=== PATIENT | female | born 1985 | race Caucasian/White ===

== ENCOUNTER → 2017-02-03 | Outpatient (CLI) | payer OTHER ==
[2017-02-03 11:06] LABS: BASO % 0.4 % (0.0-1.0); EOS # 0.1 K/mm3 (0.0-0.50); EOS % 0.9 % (0.0-3.0); LARGE UNSTAINED CELL # 0.1 K/mm3 (0.0-0.4); LARGE UNSTAINED CELL % 1.1 % (0.0-4.0); LYMPH # 2.1 K/mm3 (1.5-4.5); LYMPH % 22.6 % (24.0-44.0); MEAN CORPUSCULAR HEMOGLOBIN 29.9 pg (27.0-33.0); MEAN CORPUSCULAR HGB CONC 34.2 g/dl (32.0-36.5); MEAN CORPUSCULAR VOLUME 87.4 fl (80.0-96.0); MONO # 0.3 K/mm3 (0.0-0.8); MONO % 3.1 % (0.0-5.0); NEUTROPHILS # 6.4 K/mm3 (1.8-7.7); NEUTROPHILS % 71.9 % (36.0-66.0); PLATELET COUNT, AUTOMATED 311 k/mm3 (150-450); WHITE BLOOD COUNT 8.9 K/mm3 (4.0-10.0)
[2017-02-03 11:29] LABS: THYROID PEROXIDASE ANTIBODY < 28.0 U/ML (<60.0)
[2017-02-03 11:33] LABS: ALBUMIN 3.5 GM/DL (3.2-5.2); ALBUMIN/GLOBULIN RATIO 0.97 (1.00-1.93); ALKALINE PHOSPHATASE 53 U/L (45-117); ALT/SGPT 20 U/L (12-78); ANION GAP 8 MEQ/L (8-16); AST/SGOT 14 U/L (15-37); BILIRUBIN,TOTAL 0.4 MG/DL (0.2-1.0); BLOOD UREA NITROGEN 9 MG/DL (7-18); CALCIUM LEVEL 8.7 MG/DL (8.5-10.1); CARBON DIOXIDE LEVEL 27 MEQ/L (21-32); CHLORIDE LEVEL 105 MEQ/L (98-107); CREATININE FOR GFR 0.59 MG/DL (0.55-1.02); GLOMERULAR FILTRATION RATE > 60.0 (>60); GLUCOSE, FASTING 92 MG/DL (70-105); POTASSIUM SERUM 4.3 MEQ/L (3.5-5.1); SODIUM LEVEL 140 MEQ/L (136-145); TOTAL PROTEIN 7.1 GM/DL (6.4-8.2)
== END ==
LOC: M LAB 10:25
PROVIDERS: ATTEND Allergy & Immunology
DX: R53.81 Other malaise (principal); R63.5 Abnormal weight gain

== ENCOUNTER → 2017-04-20 | Outpatient (REF) | payer OTHER | LOC: M LAB REF 09:36 | PROVIDERS: ATTEND Physician Assistant | DX: J20.9 Acute bronchitis, unspecified (principal); J02.9 Acute pharyngitis, unspecified ==

== ENCOUNTER → 2017-06-28 | Outpatient (REF) | payer OTHER | LOC: M LAB REF 10:16 | PROVIDERS: ATTEND Nurse Practitioner Family | DX: E66.01 Morbid (severe) obesity due to excess calories (principal) ==

== ENCOUNTER → 2017-12-24 | Outpatient (CLI) | payer OTHER | LOC: M RAD 09:49 | DX: M54.2 Cervicalgia (principal) ==

== ENCOUNTER → 2017-12-31 | Outpatient (CLI) | payer OTHER | LOC: M RAD 16:15 | DX: M47.812 Spondylosis without myelopathy or radiculopathy, cervical region (principal) | CPT/HCPCS: 72141 ==

== ENCOUNTER → 2020-09-16 | Outpatient (CLI) | payer SELFPAY | LOC: M LABSMTC 12:36 | PROVIDERS: ATTEND Pediatrics | DX: Z20.828 Contact with and (suspected) exposure to other viral communicable diseases (principal) ==

== ENCOUNTER → 2022-03-06 | Outpatient (REF) | payer OTHER ==
[2022-03-07 12:11] LABS: HCG, SERUM QUANTITATIVE < 1.0 MIU/ML; THYROID STIMULATING HORMONE 0.546 uIU/ML (0.358-3.740)
[2022-03-07 12:16] LABS: FOLLICLE STIMULATING HORMONE 5.7 mIU/mL; LUTEINIZING HORMONE 9.6 mIU/mL
[2022-03-08 18:07] LABS: TESTOSTERONE FREE (DIRECT) 0.8 pg/mL (0.0-4.2); TESTOSTERONE TOTAL FOR T&D < 3.0 ng/dL (8-60)
== END ==
LOC: M LABDRAWC 10:59
DX: N94.6 Dysmenorrhea, unspecified (principal)

== ENCOUNTER → 2022-09-24 | Outpatient (CLI) | payer OTHER ==
[2022-09-24 19:04] LABS: BASO % 0.5 % (0.0-1.0); EOS # 0.1 10^3/uL (0.0-0.5); EOS % 1.5 % (0.0-3.0); HEMATOCRIT 43.4 % (36.0-47.0); HEMOGLOBIN 14.3 g/dl (12.0-15.5); LYMPH # 2.2 10^3/uL (1.5-5.0); LYMPH % 27.8 % (24.0-44.0); MEAN CORPUSCULAR HEMOGLOBIN 29.1 pg (27.0-33.0); MEAN CORPUSCULAR HGB CONC 32.9 g/dl (32.0-36.5); MEAN CORPUSCULAR VOLUME 88.4 fl (80.0-96.0); MONO # 0.4 10^3/uL (0.0-0.8); MONO % 5.2 % (2.0-8.0); NEUTROPHILS # 5.2 10^3/uL (1.5-8.5); NEUTROPHILS % 64.8 % (36.0-66.0); PLATELET COUNT, AUTOMATED 280 10^3/uL (150-450); RED BLOOD COUNT 4.91 10^6/uL (4.00-5.40)
[2022-09-24 19:23] LABS: ALBUMIN 3.7 G/DL (3.2-5.2); ALKALINE PHOSPHATASE 39 U/L (46-116); ALT/SGPT 10 U/L (7.0-40); AST/SGOT 10 U/L (<34); BILIRUBIN,TOTAL 0.4 MG/DL (0.3-1.2); BLOOD UREA NITROGEN 15 MG/DL (9-23); CALCIUM LEVEL 8.8 MG/DL (8.5-10.1); CARBON DIOXIDE LEVEL 23 MMOL/L (20-31); CHLORIDE LEVEL 110 MMOL/L (98-107); CREATININE FOR GFR 0.84 MG/DL (0.55-1.30); GLOMERULAR FILTRATION RATE > 60.0 (>60); GLUCOSE, FASTING 84 MG/DL (60-100); POTASSIUM SERUM 4.3 MMOL/L (3.5-5.1); SODIUM LEVEL 140 MMOL/L (136-145); TOTAL PROTEIN 7.3 G/DL (5.7-8.2)
[2022-09-24 19:25] LABS: FOLATE 11.2 NG/ML (>5.4); TOTAL 25(OH) VITAMIN D 29.5 NG/ML (20.0-100.0)
[2022-09-24 19:27] LABS: VITAMIN B12 LEVEL 237 PG/ML (211-911)
== END ==
LOC: M LAB 17:50
PROVIDERS: ATTEND Psychiatry & Neurology Neurology
DX: R51.9 Headache, unspecified (principal)

== ENCOUNTER → 2023-06-04 | Outpatient (REF) | payer OTHER | LOC: M SFHCWAGY 17:01 | PROVIDERS: ATTEND Nurse Practitioner Family | DX: N93.9 Abnormal uterine and vaginal bleeding, unspecified (principal) ==

== ENCOUNTER → 2023-06-11 | Outpatient (CLI) | payer OTHER | LOC: M WHC 13:15 | PROVIDERS: ATTEND Nurse Practitioner Family | DX: T83.32XA Displacement of intrauterine contraceptive device, initial encounter (principal) ==

== ENCOUNTER → 2023-06-27 | Outpatient (CLI) | payer OTHER | LOC: M PLAIMG 10:36 | PROVIDERS: ATTEND Physician Assistant | DX: R10.12 Left upper quadrant pain (principal) ==

== ENCOUNTER → 2023-08-27 | Outpatient (CLI) | payer OTHER | LOC: M WHC 11:36 | PROVIDERS: ATTEND Nurse Practitioner Family | DX: Z12.31 Encounter for screening mammogram for malignant neoplasm of breast (principal); Z80.3 Family history of malignant neoplasm of breast ==

== ENCOUNTER → 2023-08-27 | Outpatient (REF) | payer OTHER | LOC: M SFHCWAGY 17:33 | PROVIDERS: ATTEND Nurse Practitioner Family | DX: Z12.4 Encounter for screening for malignant neoplasm of cervix (principal) | CPT/HCPCS: 87624; G0123 ==

== ENCOUNTER 2024-01-01 10:44 | Day surgery (SDC) | payer OTHER ==
[~2024-01-01] VITALS: Ht 157.5 cm; Wt 83.5 kg
[~2024-01-01 10:44] MED LIST: ASPI81TA26 PO; CYCL-707 PO; LEXA1TAB2 PO; PROZ40CA PO; SENN8.6T58 PO; SUMA100T2 PO; TOPA100T12 PO; VITA100018 PO; VITA100093 PO; WELLTAB40 PO
[2024-01-01] MEDS ORDERED: propofoL 200 MG/20 ML VIAL As Ordered ONE (11:33)
[2024-01-01] MEDS ORDERED: GLYCOPYRROLATE INJ 0.2 MG/ML 2 ML VIAL As Ordered ONE (11:33)
[2024-01-01] MEDS ORDERED: LIDOCAINE 2% 100MG/5ML SDV (FOR ANES.) As Ordered ONE (11:33)
[2024-01-01 12:26] VITALS: TEMP 96.4
[2024-01-01 12:40] VITALS: BP 122/75; O2SAT 100
== END 2024-01-01 12:52 | disposition home or self-care (01) ==
LOC: M OPP 10:44
PROVIDERS: ATTEND Internal Medicine Gastroenterology
DX: K64.8 Other hemorrhoids (principal); K58.1 Irritable bowel syndrome with constipation; K92.1 Melena; I72.9 Aneurysm of unspecified site; F32.A Depression, unspecified; F41.9 Anxiety disorder, unspecified; Z98.84 Bariatric surgery status; Z79.82 Long term (current) use of aspirin; Z79.891 Long term (current) use of opiate analgesic; Z79.899 Other long term (current) drug therapy